=== PATIENT | male | born 1990 | race Caucasian/White ===

== ENCOUNTER 2018-02-24 20:49 | Emergency (ER) | payer SELFPAY ==
[2018-02-24 20:59] VITALS: BP 144/87
--- NOTE | 2018-02-24 21:35 | EDM.PDOC ---
ED HPI GENERAL MEDICAL PROBLEM - General Chief Complaint: Upper Extremity Injury/Pain Stated Complaint: LEFT SHOULDER PAIN Time Seen by Provider: 02/24/18 21:10 Source of Information: Reports: Patient History Limitations: Reports: No Limitations - History of Present Illness INITIAL COMMENTS - FREE TEXT/NARRATIVE: Mikel is a 27yo male presents ambulatory to ED with c/o lt shoulder pain. States he "broke my shoulder" around 4 or 5 years ago when he fell down the stairs. He is unable to describe where exactly on his shoulder was broken. states he has had intermittent problems with that shoulder since that time. He was placed in a sling for treatment. He takes occasional ibuprofen with relief usually however, today ibuprofen has not helped. He has pain with motion of the arm, specifically to raise the arm overhead and with forward flexion. Denies numbness/tingling down the arm, hand or fingers. No acute injury such as fall, lifting, pushing, pulling or carrying, no other trauma recently. 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 [No Known Home Meds] 04/23/15 [History] Past Medical History - Past Health History Medical/Surgical History: Denies Medical/Surgical History Musculoskeletal History: Reports: Other (See Below) - Past Surgical History Other Musculoskeletal Surgeries/Procedures:: fracture to shoulder Social & Family History - Family History Family Medical History: Noncontributory Cardiac: Reports: CAD Oncologic: Reports: Other (See Below) Other Oncologic Family History: Cancer in family unsure of type - Tobacco Use Smoking Status *Q: Never Smoker Years of Tobacco use: 1 Second Hand Smoke Exposure: No - Caffeine Use Caffeine Use: Reports: Energy Drinks, Soda - Alcohol Use Days Per Week of Alcohol Use: 2 Number of Drinks Per Day: 2 Total Drinks Per Week: 4 - Recreational Drug Use Recreational Drug Use: No Review of Systems - Review of Systems Review Of Systems: See Below Respiratory: Reports: No Symptoms Cardiovascular: Reports: No Symptoms GI/Abdominal: Reports: No Symptoms Musculoskeletal: Reports: Shoulder Pain, Muscle Pain (shoulder). Denies: Neck Pain, Arm Pain, Back Pain, Hand Pain, Joint Swelling Skin: Reports: No Symptoms Neurological: Reports: No Symptoms. Denies: Paresthesia, Tingling ED EXAM, GENERAL - Physical Exam Exam: See Below Exam Limited By: No Limitations General Appearance: Alert, WD/WN, No Apparent Distress Eye Exam: Bilateral Eye: EOMI, PERRL Ears: Normal External Exam, Hearing Grossly Normal Nose: Normal Inspection Throat/Mouth: Normal Inspection, Normal Voice, No Airway Compromise Head: Atraumatic, Normocephalic Neck: Normal Inspection, Supple, Full Range of Motion Respiratory/Chest: No Respiratory Distress Peripheral Pulses: 2+: Radial (L), Radial (R) Extremities: Normal Inspection, Normal Capillary Refill, Arm Pain (left shoulder : normal to inspection, palpation is with tenderness to lateral and posterior aspect of shoulder, anterior scapula. ROM is decreased and painful to forward flexion, lateral raise can get to 90degrees with minimal pain, internal rotation with forearm behind the back is painful but he can reach to his posterior belt line. CMS is + distally. Normal sensation to lateral deltoid. ) Neurological: Alert, Oriented, Normal Cognition Psychiatric: Flat Affect Skin Exam: Warm, Dry, Intact Course - Vital Signs Last Recorded V/S: Last Vital Signs Temp 97.6 F 02/24/18 20:58 Pulse 93 02/24/18 20:58 Resp 16 02/24/18 20:58 BP 144/87 H 02/24/18 20:58 Pulse Ox 99 02/24/18 20:58 - Orders/Labs/Meds Orders: Active Orders 24 hr Category Date Time Status Shoulder Comp Lt [CR] Stat Exams 02/24/18 21:29 Taken Meds: Medications Discontinued Medications Generic Name Dose Route Start Last Admin Trade Name Freq PRN Reason Stop Dose Admin Ibuprofen 800 mg 02/24/18 22:16 Motrin PO 02/24/18 22:17 ONETIME ONE Tizanidine HCl 4 mg 02/24/18 22:16 Zanaflex PO 02/24/18 22:17 NOW STA - Re-Assessments/Exams Free Text/Narrative Re-Assessment/Exam: 02/24/18 22:18 Xrays reviewed: Appears to be old fracture to humeral head, suspect avulsion type but nothing acute noted. No dislocation. Will await radiologist final interpretation. Reviewed findings with patient. Recommend NSAIDS 3 times daily with food for the next 5 days then PRN, muscle relaxant, gentle ROM and close Orthopedic follow up. He voices understanding and is in agreement to POC. Departure - Departure Time of Disposition: 22:20 Disposition: Home, Self-Care 01 Condition: Good Clinical Impression: Shoulder pain Qualifiers: Chronicity: acute Laterality: left Qualified Code(s): M25.512 - Pain in left shoulder - Discharge Information Instructions: Shoulder Pain, [id number], Tendinitis, [id number] Referrals: PCP,None [Primary Care Provider] - Forms: ED Department Discharge Additional Instructions: Ibuprofen 600-800mg 3 times daily with food x 5 days then can take as needed. Muscle relaxant, zanaflex 4mg as needed twice daily for pain/muscle spasms; this may make you drowsy so caution with driving. Ice to the shoulder 3-4 times daily, 20 minute sessions Avoid lifting, pushing, pulling or carrying >10 lbs with left arm until pain resolves Gentle range of motion to the shoulder to avoid worsening stiffness Recommend follow up with Orthopedics for further evaluation of shoulder pain if not improving over the next 3 to [address] Conner's office to schedule appointment at [phone] Can return to ER if needed - My Orders Last 24 Hours: My Active Orders 02/24/18 21:29 Shoulder Comp Lt [CR] Stat - Assessment/Plan Last 24 Hours: My Active Orders 02/24/18 21:29 Shoulder Comp Lt [CR] Stat
[2018-02-24] MEDS ORDERED: tiZANidine 4 MG Tab PO STA (22:16)
[2018-02-24] MEDS ORDERED: Ibuprofen 800 MG Tab PO ONE (22:16)
--- NOTE | 2018-02-25 08:18 | CR ---
Left shoulder: Three views of the left shoulder were obtained. Comparison: No prior study. Dense calcification is seen off the humeral head. This may represent dense calcific tendinitis. There is also a lucency seen within the humeral head suspicious for chronic avascular necrosis or fracture. Acromioclavicular and glenohumeral joints appear within normal limits. No additional abnormality is seen. Impression: 1. Prominent calcific tendinitis. 2. Lucency within the humeral head either due to chronic avascular necrosis or fracture. Diagnostic code #3
== END 2018-02-24 22:30 | disposition home or self-care (01) ==
LOC: JD.ED 20:49
DX: M25.512 Pain in left shoulder (principal)
CPT/HCPCS: 73030; 99283; A9270